=== PATIENT | male | born 1940 | race Caucasian/White ===

== ENCOUNTER 2016-09-06 18:51 | Emergency (ER) | payer OTHER ==
[2016-09-06 18:08] LABS: ASCORBIC ACID (UR NOT ORDER) NEG (NEG); BILIRUBIN, URINE NEGATIVE (NEG); ER URINALYSIS TAT 0 Hrs 20 Mins; KETONE, URINE NEGATIVE (NEG); LEUKOCYTE ESTERASE(NOT OR NEG (NEG); NITRITE (URINE) NEG (NEG); WBC (NOT ORDERED) (RFLEX) 2 (0-5)
[2016-09-06 18:12] LABS: BUN (BLOOD UREA NITROGEN) 24 MG/DL (6-23); CALCIUM, SERUM 9.6 MG/DL (8.5-10.4); CHLORIDE, SERUM 106 MMOL/L (96-112); CO2 (CARBON DIOXIDE) 22 MMOL/L (24-34); CREATININE 1.45 MG/DL (0.70-1.30); GFR AFRICAN AMERICAN 54 ML/MIN (>=60); GFR NON AFRICAN AMERICAN 46 ML/MIN (>=60); SODIUM, SERUM 143 MMOL/L (135-148)
[2016-09-06 18:13] LABS: GLUCOSE, SERUM 84 MG/DL (60-99); POTASSIUM, SERUM 4.2 MMOL/L (3.5-5.3)
[~2016-09-06 18:51] MED LIST: ASAB PO; BEN25 PO; CAT1 PO; CAT2 PO; COREG25 PO; CYANO1000T PO; DEMA10T PO; DEMA20 PO; DIABET2.5 PO; FLOMAX4 PO; GLUCPH PO; LANTUS SC; LOTE40 PO; LYRICA50 PO; METAGLIP1 TA1 PO; NORCO1 TAB PO; NORV10 PO; NORV5 PO; PRILO PO; PROMEGA PO; VITAMIN B-121000 MC1 SL; VITAMIN D31000 UNIT PO; Z300 PO; ZIAC2 PO; ZOCOR40 PO
[2016-10-05] MEDS ORDERED: SYN.05 PO (14:37)
[2016-10-05] MEDS ORDERED: NORCO1 TAB PO (14:39)
== END 2016-09-06 19:05 | disposition home or self-care (01) ==
LOC: ER 18:51
PROVIDERS: Physician Assistant
PROC: 0T9B70Z Drainage of Bladder with Drainage Device, Via Natural or Artificial Opening (ICD-10-PCS; principal; 2016-09-06)
DX: R33.9 Retention of urine, unspecified (principal); E11.9 Type 2 diabetes mellitus without complications; Z79.84 Long term (current) use of oral hypoglycemic drugs; Z79.4 Long term (current) use of insulin; Z79.82 Long term (current) use of aspirin; Z79.899 Other long term (current) drug therapy
CPT/HCPCS: 80048; 81001; 99283

== ENCOUNTER 2016-09-22 17:12 | Emergency (ER) | payer OTHER ==
[2016-10-05] MEDS ORDERED: SYN.05 PO (14:37)
[2016-10-05] MEDS ORDERED: NORCO1 TAB PO (14:39)
== END 2016-09-22 17:30 | disposition home or self-care (01) ==
LOC: ER 17:12
PROC: 0T9B70Z Drainage of Bladder with Drainage Device, Via Natural or Artificial Opening (ICD-10-PCS; principal; 2016-09-22)
DX: R33.9 Retention of urine, unspecified (principal); E78.5 Hyperlipidemia, unspecified; I10 Essential (primary) hypertension; E11.9 Type 2 diabetes mellitus without complications; Z87.891 Personal history of nicotine dependence; Z79.84 Long term (current) use of oral hypoglycemic drugs; Z79.82 Long term (current) use of aspirin; Z79.899 Other long term (current) drug therapy
CPT/HCPCS: 99283

== ENCOUNTER 2016-10-12 06:35 | Inpatient (IN) | payer OTHER ==
[2016-10-05 10:55] LABS: HEMATOCRIT 33.9 % (40.0-51.0); HEMOGLOBIN 11.7 g/dL (13.6-17.8)
[2016-10-05 11:07] LABS: CHLORIDE, SERUM 99 MMOL/L (96-112); CO2 (CARBON DIOXIDE) 25 MMOL/L (24-34); POTASSIUM, SERUM 4.8 MMOL/L (3.5-5.3)
[2016-10-05 11:09] LABS: BUN (BLOOD UREA NITROGEN) 32 MG/DL (6-23); CALCIUM, SERUM 8.4 MG/DL (8.5-10.4); GFR AFRICAN AMERICAN 36 ML/MIN (>=60); GFR NON AFRICAN AMERICAN 31 ML/MIN (>=60); GLUCOSE, SERUM 268 MG/DL (60-99); SODIUM, SERUM 135 MMOL/L (135-148)
[2016-10-05 12:32] LABS: ASCORBIC ACID (UR NOT ORDER) NEG (NEG); BILIRUBIN, URINE NEGATIVE (NEG); KETONE, URINE NEGATIVE (NEG); LEUKOCYTE ESTERASE(NOT OR LARGE (NEG); WBC (NOT ORDERED) (RFLEX) 26 (0-5)
--- NOTE | ~2016-10-12 | PREOPHP ---
PreOp History and Physical [address] [place]. [address] NAME: SUHAIL KIRK : 40 STATUS : DIS IN PAT#: [id number] AGE: 76 ADM/REG DATE : 10/12/16 MR#: [id number] REPORT SERV DATE: 11/06/16 DICTATED BY: JULIANA LEWIS DATE: 11/06/16 REPORT STATUS : Draft TRANSCRIBED BY: ALICIA DATE: 11/06/16 CHIEF COMPLAINT: BPH with urinary retention. HISTORY OF PRESENT ILLNESS: Mr. Kirk is a 76-year-old male with BPH. He has urinary retention with a refractory catheter placement. His prostate was measured and found to be over 100 g. Various options were discussed with the patient including Hawley catheter placement, SP tube, stage transurethral resection of the prostate or robot-assisted laparoscopic simple prostatectomy. He is here for the latter option. PAST MEDICAL HISTORY: Notable for: 1. BPH with obstruction. 2. Urinary retention. 3. Hypothyroidism. 4. Hypertension. 5. Diabetes. 6. Arthritis. 7. GERD. 8. Cataracts. SURGICAL HISTORY: None. FAMILY HISTORY: No genitourinary cancer. SOCIAL HISTORY: He does drink. He does not smoke. He does not use drugs. MEDICATIONS: Reviewed and are on the chart. ALLERGIES: NO KNOWN DRUG ALLERGIES. REVIEW OF SYSTEMS: A 12-point review of systems was performed. Pertinent positives listed in the HPI. PHYSICAL EXAMINATION: VITAL SIGNS: Afebrile. Vital signs stable. GENERAL: No acute distress. Appears his stated age. HEENT: Head is normocephalic and atraumatic. LUNGS: Breathing nonlabored. He is not in respiratory distress. HEART: Pulse is regular in rate and rhythm. ABDOMEN: Soft, nontender, nondistended. NEURO: He is alert and oriented x3. : He has a Hawley catheter in place. Urine is clear. LABORATORY DATA: No new labs. IMAGING: No new imaging. ASSESSMENT AND PLAN: Mr. Kirk has BPH with obstruction due to a very large prostate of PreOp History and Physical [address] [address] NAME: SUHAIL KIRK : 40 STATUS : DIS IN PAT#: [id number] AGE: 76 ADM/REG DATE : 10/12/16 MR#: [id number] REPORT SERV DATE: 11/06/16 DICTATED BY: JULIANA LEWIS DATE: 11/06/16 REPORT STATUS : Draft TRANSCRIBED BY: ALICIA DATE: 11/06/16 over 100 g. He also has refractory urinary retention. We will proceed with robot-assisted laparoscopic simple prostatectomy. Risks and benefits were discussed in detail. Consents were obtained. We will proceed as discussed. ANDREAS/ALICIA Juliana Lewis MD / [id number] CC: MD Vernon William M.D.
--- NOTE | ~2016-10-12 | OP ---
Record Of Operation [facility] [address] [place]. [address] NAME: SUHAIL KIRK : 40 STATUS : ADM IN PAT#: [id number] AGE: 76 ADM/REG DATE : 10/12/16 MR#: [id number] REPORT SERV DATE: 10/12/16 DICTATED BY: JULIANA LEWIS DATE: 10/12/16 REPORT STATUS : Draft TRANSCRIBED BY: MODL DATE: 10/12/16 DATE OF PROCEDURE: 10/12/2016 TITLE OF OPERATION: Robot-assisted laparoscopic simple prostatectomy. PREOPERATIVE DIAGNOSES: 1. Benign prostatic hypertrophy with obstruction. 2. Urinary retention. POSTOPERATIVE DIAGNOSES: 1. Benign prostatic hypertrophy with obstruction. 2. Urinary retention. INDICATIONS: Mr. Kirk is a 76-year-old male with BPH and retention. His prostate is over 100 g. He is here for a robotic simple prostatectomy. ANESTHESIA: General. COMPLICATIONS: None. IMPLANT: 1. A 24-Korean 3-way Hawley catheter. 2. #10 round SRINI drain. SPECIMEN: Prostatic adenoma. NARRATIVE: The patient was brought to the operating room, identified by his wristband. General anesthesia was induced and Ancef and Levaquin given for preoperative antibiotics. He was placed in dorsal lithotomy position, prepped and draped in sterile fashion. His abdomen was insufflated to pressure of 15 mmHg using a Veress needle. A 12 mm incision was made above his umbilicus and a 12 mm port was placed under direct vision. The abdomen was inspected. There were no adhesions. Two 8 mm ports were placed in the left side of the body and one 8 mm port was placed in the right side of the body. A 12 mm port was placed in the lower right quadrant and a 5 mm port was placed in the upper right quadrant for library circulation assistant ports. The patient was placed in Trendelenburg. The robot was docked. The bladder was dropped off the anterior abdominal wall. The prostate was defatted with bipolar cautery and scissors. A horizontal cystotomy was made. The bladder was entered. A 2-0 Vicryl was used as a retracting stitch for the intravesical adenoma. The bladder mucosa on the adenoma above the trigone was scored. This dissection was deepened through the detrusor muscles onto the adenoma. The adenoma was traced down to the junction of the peripheral zone of the prostate. The peripheral zone of the prostate was bluntly dissected off the transitional zone of the prostate from the base to the apex. The adenoma was then dissected off the prostatic capsule circumferentially. The urethra was identified and sharply transected. The adenoma was then freed from all attachments and placed into EndoCatch bag. Arterial bleeding was controlled with pinpoint cautery. The bladder mucosa was advanced into the prostatic fossa with a running 3-0 V-Loc suture. The dorsal venous penetrators Record Of Operation [place] [place] [id number] [facility] [place]. [address] NAME: SUHAIL KIRK : 40 STATUS : ADM IN PAT#: [id number] AGE: 76 ADM/REG DATE : 10/12/16 MR#: [id number] REPORT SERV DATE: 10/12/16 DICTATED BY: JULIANA LEWIS DATE: 10/12/16 REPORT STATUS : Draft TRANSCRIBED BY: ALICIA DATE: 10/12/16 oversewn with a running 3-0 V-Loc suture in a U-shaped fashion. The cystotomy was closed in two layers. The first layer was a mucosal layer with a 3-0 V-Loc suture. The seromuscular layer was closed with a running 2-0 V-Loc suture. A 24-Korean 3-way Hawley catheter was placed. The balloon was inflated to 40 mL of sterile water. CBI was initiated. The bladder was irrigated. The connection was water tight. The robot was undocked. The library circulation assistant port was closed with 0 Vicryl suture using a Junior-Main device. A #10 round SRINI drain was placed through the left most lateral robotic port. The supraumbilical incision was enlarged at the skin and fascia levels. The adenoma was removed and sent to pathology. The fascia was closed with a 0 Monocryl suture in a [id number] fashion. Wounds were irrigated clear. The skin was closed with a 4-0 Monocryl suture in a subcuticular fashion. Dermabond dressing was placed. The patient was awoken from anesthesia and transferred to recovery room in stable condition. There were no complications. ANDREAS/ALICIA Juliana Lewis MD / [id number] CC: Juliana Lewis MD
--- NOTE | ~2016-10-12 | DS ---
Discharge Summary [facility] [address] [place]. [address] NAME: SUHAIL KIRK : 40 STATUS : DIS IN PAT#: [id number] AGE: 76 ADM/REG DATE : 10/12/16 MR#: [id number] REPORT SERV DATE: 11/06/16 DICTATED BY: JULIANA LEWIS DATE: 11/06/16 REPORT STATUS : Draft TRANSCRIBED BY: ALICIA DATE: 11/06/16 ADMISSION DATE: 10/12/2016 DISCHARGE DATE: 10/15/2016 DISCHARGE DIAGNOSES: 1. Benign prostatic hypertrophy with obstruction. 2. Urinary retention. DISCHARGE PROCEDURES: Robot-assisted laparoscopic simple prostatectomy. HOSPITAL COURSE: Mr. Kirk is a 76-year-old male, with BPH with urinary retention. His prostate is over 100 g. On the day of admission, he had underwent the above-mentioned operation. There were no major complications. For full details, please see my operative note. Postoperatively, he was transferred to the recovery room then to the floor. During hospitalization, his diet was gradually advanced to a regular diet. His catheter was maintained on CBI, which is weaned until the day of discharge. On the day of discharge, his urine was clear. He had normal bowel function. He was linwood was ambulating independently. He was then deemed medically fit for home and was discharged. DISCHARGE MEDICATIONS: Please see discharge medication reconciliation work sheet. DISCHARGE INSTRUCTIONS: Please see my preprinted discharge instructions. FOLLOWUP: Please follow up with me in one week for Hawley catheter removal. ANDREAS/ALICIA Juliana Lewis MD / [id number] CC: MD Vernon William M.D.
[~2016-10-12 06:35] MED LIST changes: +SYN.05 PO
[2016-10-12 11:55] LABS: BASOPHILS 0.4 %; BASOPHILS ABSOLUTE 0.03 10/3/uL (0.0-0.16); EOSINOPHILS 3.4 %; EOSINOPHILS ABSOLUTE 0.23 10/3/uL (0.0-0.53); HEMATOCRIT 32.5 % (40.0-51.0); HEMOGLOBIN 11.2 g/dL (13.6-17.8); IMMATURE GRANULOCYTES 0.1 %; IMMATURE GRANULOCYTES ABSOLUTE 0.01 10/3/uL (0.0-0.11); LYMPHOCYTES 10.4 %; MEAN CORPUS HGB CONC 34.5 g/dL (32.0-36.0); MEAN CORPUSCULAR HEMOGLOB 32.2 pg (26.0-34.0); MEAN CORPUSCULAR VOLUME 93.4 fL (80-100); MEAN PLATELET VOLUME 10.3 fL (9.2-13.0); MONOCYTES 3.1 %; MONOCYTES ABSOLUTE 0.21 10/3/uL (0.21-1.20); NEUTROPHILS 82.6 %; NEUTROPHILS ABSOLUTE 5.55 10/3/uL (2.02-8.40); PLATELET COUNT 218 10/3/uL (150-400); RBC DISTRIBUTION WIDTH 14.3 % (12.0-16.0); RED CELL COUNT 3.48 10/6/uL (4.7-6.1); WHITE BLOOD CELLS 6.7 10/3/uL (4.5-10.5)
[2016-10-12 11:56] LABS: MANUAL DIFF NO %
[2016-10-12 12:05] LABS: BUN (BLOOD UREA NITROGEN) 27 MG/DL (6-23); CALCIUM, SERUM 8.5 MG/DL (8.5-10.4); CHLORIDE, SERUM 100 MMOL/L (96-112); CO2 (CARBON DIOXIDE) 27 MMOL/L (24-34); CREATININE 1.62 MG/DL (0.70-1.30); GFR AFRICAN AMERICAN 47 ML/MIN (>=60); GFR NON AFRICAN AMERICAN 41 ML/MIN (>=60); GLUCOSE, SERUM 165 MG/DL (60-99); POTASSIUM, SERUM 4.2 MMOL/L (3.5-5.3); SODIUM, SERUM 135 MMOL/L (135-148)
[2016-10-13 07:12] LABS: BASOPHILS 0.1 %; BASOPHILS ABSOLUTE 0.01 10/3/uL (0.0-0.16); EOSINOPHILS 0.1 %; EOSINOPHILS ABSOLUTE 0.01 10/3/uL (0.0-0.53); IMMATURE GRANULOCYTES 0.7 %; IMMATURE GRANULOCYTES ABSOLUTE 0.09 10/3/uL (0.0-0.11); LYMPHOCYTES 10.5 %; LYMPHOCYTES ABSOLUTE 1.28 10/3/uL (0.67-4.30); MEAN CORPUS HGB CONC 34.1 g/dL (32.0-36.0); MEAN CORPUSCULAR HEMOGLOB 32.4 pg (26.0-34.0); MEAN CORPUSCULAR VOLUME 94.9 fL (80-100); MEAN PLATELET VOLUME 10.2 fL (9.2-13.0); MONOCYTES 9.8 %; MONOCYTES ABSOLUTE 1.19 10/3/uL (0.21-1.20); NEUTROPHILS 78.8 %; NEUTROPHILS ABSOLUTE 9.58 10/3/uL (2.02-8.40); PLATELET COUNT 200 10/3/uL (150-400); RBC DISTRIBUTION WIDTH 14.2 % (12.0-16.0)
[2016-10-13 07:15] LABS: HEMATOCRIT 25.8 % (40.0-51.0); HEMOGLOBIN 8.8 g/dL (13.6-17.8); MANUAL DIFF NO %; RED CELL COUNT 2.72 10/6/uL (4.7-6.1); WHITE BLOOD CELLS 12.2 10/3/uL (4.5-10.5)
[2016-10-13 07:22] LABS: BUN (BLOOD UREA NITROGEN) 24 MG/DL (6-23); CHLORIDE, SERUM 102 MMOL/L (96-112); CO2 (CARBON DIOXIDE) 27 MMOL/L (24-34); CREATININE 1.58 MG/DL (0.70-1.30); GFR AFRICAN AMERICAN 49 ML/MIN (>=60); GFR NON AFRICAN AMERICAN 42 ML/MIN (>=60); GLUCOSE, SERUM 187 MG/DL (60-99); POTASSIUM, SERUM 4.7 MMOL/L (3.5-5.3); SODIUM, SERUM 136 MMOL/L (135-148)
[2016-10-14 07:33] LABS: BASOPHILS 0.2 %; BASOPHILS ABSOLUTE 0.02 10/3/uL (0.0-0.16); EOSINOPHILS 1.7 %; EOSINOPHILS ABSOLUTE 0.17 10/3/uL (0.0-0.53); HEMOGLOBIN 7.7 g/dL (13.6-17.8); IMMATURE GRANULOCYTES 0.4 %; IMMATURE GRANULOCYTES ABSOLUTE 0.04 10/3/uL (0.0-0.11); LYMPHOCYTES 14.3 %; LYMPHOCYTES ABSOLUTE 1.45 10/3/uL (0.67-4.30); MEAN CORPUS HGB CONC 33.9 g/dL (32.0-36.0); MEAN CORPUSCULAR HEMOGLOB 32.2 pg (26.0-34.0); MEAN PLATELET VOLUME 10.2 fL (9.2-13.0); MONOCYTES 12.1 %; MONOCYTES ABSOLUTE 1.22 10/3/uL (0.21-1.20); NEUTROPHILS 71.3 %; NEUTROPHILS ABSOLUTE 7.22 10/3/uL (2.02-8.40); PLATELET COUNT 182 10/3/uL (150-400); RBC DISTRIBUTION WIDTH 14.3 % (12.0-16.0); RED CELL COUNT 2.39 10/6/uL (4.7-6.1); WHITE BLOOD CELLS 10.1 10/3/uL (4.5-10.5)
[2016-10-14 07:35] LABS: HEMATOCRIT 22.7 % (40.0-51.0); MANUAL DIFF NO %
[2016-10-14 07:46] LABS: CALCIUM, SERUM 7.9 MG/DL (8.5-10.4); CHLORIDE, SERUM 103 MMOL/L (96-112); CO2 (CARBON DIOXIDE) 25 MMOL/L (24-34); CREATININE 1.51 MG/DL (0.70-1.30); GFR AFRICAN AMERICAN 51 ML/MIN (>=60); GFR NON AFRICAN AMERICAN 44 ML/MIN (>=60); GLUCOSE, SERUM 176 MG/DL (60-99); POTASSIUM, SERUM 4.4 MMOL/L (3.5-5.3); SODIUM, SERUM 136 MMOL/L (135-148)
[2016-10-14 07:47] LABS: BUN (BLOOD UREA NITROGEN) 18 MG/DL (6-23)
[2016-10-15 10:39] LABS: BASOPHILS 0.2 %; BASOPHILS ABSOLUTE 0.02 10/3/uL (0.0-0.16); EOSINOPHILS 3.2 %; EOSINOPHILS ABSOLUTE 0.34 10/3/uL (0.0-0.53); HEMATOCRIT 22.6 % (40.0-51.0); HEMOGLOBIN 7.8 g/dL (13.6-17.8); IMMATURE GRANULOCYTES 0.8 %; IMMATURE GRANULOCYTES ABSOLUTE 0.09 10/3/uL (0.0-0.11); LYMPHOCYTES 13.5 %; LYMPHOCYTES ABSOLUTE 1.45 10/3/uL (0.67-4.30); MEAN CORPUS HGB CONC 34.5 g/dL (32.0-36.0); MEAN CORPUSCULAR HEMOGLOB 32.6 pg (26.0-34.0); MEAN CORPUSCULAR VOLUME 94.6 fL (80-100); MEAN PLATELET VOLUME 10.1 fL (9.2-13.0); MONOCYTES 10.9 %; MONOCYTES ABSOLUTE 1.17 10/3/uL (0.21-1.20); NEUTROPHILS 71.4 %; NEUTROPHILS ABSOLUTE 7.66 10/3/uL (2.02-8.40); PLATELET COUNT 210 10/3/uL (150-400); RBC DISTRIBUTION WIDTH 14.4 % (12.0-16.0); RED CELL COUNT 2.39 10/6/uL (4.7-6.1); WHITE BLOOD CELLS 10.7 10/3/uL (4.5-10.5)
[2016-10-15 10:40] LABS: MANUAL DIFF NO %
[2016-10-15] MEDS ORDERED: LEVAQUIN750 MG PO (16:20)
[2016-10-15] MEDS ORDERED: DIL2TAB PO (16:20)
[2016-10-15] MEDS ORDERED: DSS PO (16:21)
== END 2016-10-15 17:19 | disposition home or self-care (01) | DRG 717 ==
LOC: SDC/OF 06:35 → PACU 11:37 → 4SO 12:57
PROVIDERS: Urology
PROC: 0VB04ZZ Excision of Prostate, Percutaneous Endoscopic Approach (ICD-10-PCS; principal; 2016-10-12 10:00)
PROC: 8E0W4CZ Robotic Assisted Procedure of Trunk Region, Percutaneous Endoscopic Approach (ICD-10-PCS; principal; 2016-10-12 10:00)
DX: N40.1 Benign prostatic hyperplasia with lower urinary tract symptoms (principal); N13.8 Other obstructive and reflux uropathy; E11.22 Type 2 diabetes mellitus with diabetic chronic kidney disease; N18.3 Chronic kidney disease, stage 3 (moderate); R33.8 Other retention of urine; E78.00 Pure hypercholesterolemia, unspecified; M19.90 Unspecified osteoarthritis, unspecified site; K21.9 Gastro-esophageal reflux disease without esophagitis; E03.9 Hypothyroidism, unspecified; I12.9 Hypertensive chronic kidney disease with stage 1 through stage 4 chronic kidney disease, or unspecified chronic kidney disease
CPT/HCPCS: 36415; 80048; 81001; 82570; 82962; 85014; 85018; 85025; 86850; 86900; 86901; 87077; 87086; 87186; 88307; 93005; 97161-GP; A9270-GY; J0690; J1170; J1956; J2250; J2370; J2405; J2710; J2795; J3010

== ENCOUNTER 2017-03-02 19:28 | Emergency (ER) | payer OTHER ==
[~2017-03-02 19:28] MED LIST changes: +DIL2TAB PO; +DSS PO; +LEVAQUIN750 MG PO
[2017-03-02 20:26] LABS: BASOPHILS 0.7 %; BASOPHILS ABSOLUTE 0.08 10/3/uL (0.0-0.16); EOSINOPHILS 7.3 %; EOSINOPHILS ABSOLUTE 0.78 10/3/uL (0.0-0.53); ER CBC TAT 0 Hrs 05 Mins; HEMATOCRIT 26.9 % (40.0-51.0); HEMOGLOBIN 8.1 g/dL (13.6-17.8); IMMATURE GRANULOCYTES 0.2 %; IMMATURE GRANULOCYTES ABSOLUTE 0.02 10/3/uL (0.0-0.11); LYMPHOCYTES 20.6 %; LYMPHOCYTES ABSOLUTE 2.21 10/3/uL (0.67-4.30); MANUAL DIFF NO %; MEAN CORPUS HGB CONC 30.1 g/dL (32.0-36.0); MEAN CORPUSCULAR VOLUME 76.4 fL (80-100); MEAN PLATELET VOLUME 9.5 fL (9.2-13.0); MONOCYTES 10.1 %; MONOCYTES ABSOLUTE 1.08 10/3/uL (0.21-1.20); NEUTROPHILS 61.1 %; NEUTROPHILS ABSOLUTE 6.55 10/3/uL (2.02-8.40); PLATELET COUNT 259 10/3/uL (150-400); RBC DISTRIBUTION WIDTH 19.2 % (12.0-16.0); RED CELL COUNT 3.52 10/6/uL (4.7-6.1); WHITE BLOOD CELLS 10.7 10/3/uL (4.5-10.5)
[2017-03-02 20:38] LABS: CALCIUM, SERUM 8.6 MG/DL (8.5-10.4); CHLORIDE, SERUM 103 MMOL/L (96-112); CO2 (CARBON DIOXIDE) 23 MMOL/L (24-34); CREATININE 1.67 MG/DL (0.70-1.30); GFR AFRICAN AMERICAN 45 ML/MIN (>=60); GFR NON AFRICAN AMERICAN 39 ML/MIN (>=60); POTASSIUM, SERUM 3.9 MMOL/L (3.5-5.3); SODIUM, SERUM 137 MMOL/L (135-148)
[2017-03-02 20:39] LABS: BUN (BLOOD UREA NITROGEN) 28 MG/DL (6-23); GLUCOSE, SERUM 79 MG/DL (60-99)
[2017-03-02 21:04] LABS: ASCORBIC ACID (UR NOT ORDER) NEG (NEG); BILIRUBIN, URINE NEGATIVE (NEG); ER URINALYSIS TAT 0 Hrs 15 Mins; KETONE, URINE NEGATIVE (NEG); LEUKOCYTE ESTERASE(NOT OR NEG (NEG); NITRITE (URINE) NEG (NEG); WBC (NOT ORDERED) (RFLEX) < 1 (0-5)
[2017-03-02 21:12] LABS: TROPONIN I 0.18 NG/ML (<0.05)
[2017-03-02] MEDS ORDERED: METAGLIP1 TA1 PO (21:42)
[2017-03-02] MEDS ORDERED: PRILO PO (21:42)
[2017-03-02] MEDS ORDERED: GLUCPH PO (21:42)
[2017-03-02] MEDS ORDERED: ZOCOR40 PO (21:43)
[2017-03-02] MEDS ORDERED: COREG25 PO (21:43)
[2017-03-02] MEDS ORDERED: DEMA10T PO (21:43)
[2017-03-02] MEDS ORDERED: NORV5 PO (21:43)
[2017-03-02] MEDS ORDERED: LANTUS SC (21:44)
[2017-03-02] MEDS ORDERED: ASAB PO (21:44)
[2017-03-02] MEDS ORDERED: CAT2 PO (21:44)
[2017-03-02] MEDS ORDERED: SYN.05 PO (21:44)
[2017-03-02] MEDS ORDERED: LOTE40 PO (21:44)
[2017-03-02] MEDS ORDERED: CYANO1000T PO (21:45)
[2017-03-02] MEDS ORDERED: NORCO1 TAB PO (21:45)
[2017-03-02] MEDS ORDERED: VITAMIN D31000 UNIT PO (21:46)
[2017-03-02] MEDS ORDERED: FISH OIL300 MG PO (21:46)
== END 2017-03-02 23:55 | disposition home or self-care (01) ==
LOC: ER 19:28
PROVIDERS: Student in an Organized Health Care Education/Training Program
DX: E16.2 Hypoglycemia, unspecified (principal); I10 Essential (primary) hypertension; K21.9 Gastro-esophageal reflux disease without esophagitis; F17.200 Nicotine dependence, unspecified, uncomplicated; Z79.82 Long term (current) use of aspirin; Z79.4 Long term (current) use of insulin; Z79.899 Other long term (current) drug therapy
CPT/HCPCS: 70450; 71010; 80048; 81001; 82962; 84484; 85025; 93005; 99285